=== PATIENT | female | born 1995 | race Caucasian/White ===

== ENCOUNTER 2022-06-16 07:13 | Emergency (ER) | payer MEDICAID ==
[~2022-06-16] VITALS: Ht 154.9 cm; Wt 82.0 kg
[2022-06-16 07:29] VITALS: BP 140/87
[2022-06-16] MEDS ORDERED: MELA5TAB19 PO (07:36)
[2022-06-16] MEDS ORDERED: BUPR1FIL7 SL (07:36)
[2022-06-16] MEDS ORDERED: ABIL5 PO (07:36)
[2022-06-16] MEDS ORDERED: SERT25TA PO (07:36)
[2022-06-16] MEDS ORDERED: ACETAMINOPHEN 325MG TABLET PO ONE (08:15)
[2022-06-16] MEDS ORDERED: IBUP-2028 MT (09:36)
== END 2022-06-16 10:17 | disposition home or self-care (01) ==
LOC: ER 07:13
DX: S62.306A Unspecified fracture of fifth metacarpal bone, right hand, initial encounter for closed fracture (principal); R51.9 Headache, unspecified; Y04.0XXA Assault by unarmed brawl or fight, initial encounter; Y93.89 Activity, other specified; Y92.89 Other specified places as the place of occurrence of the external cause; Y99.8 Other external cause status
CPT/HCPCS: 29125; 73130; 99284